=== PATIENT | male | born 1960 | race Caucasian/White ===

== ENCOUNTER → 2016-10-10 | Outpatient (CLI) | payer OTHER ==
--- OUTSIDE RECORDS SUMMARY | 2016-10-10 17:06 | XMS REPORT | Continuity of Care Document ---
Author Author [facility] Organization [facility] Address Unknown Phone Unavailable Allergies Medications Problems Date Dx Coded Attending Type Code Diagnosis Diagnosed By 05/11/2015 Ot 424.0 05/11/2015 Ot 786.59 05/11/2015 Ot 401.9 05/11/2015 Ot 424.0 05/11/2015 Ot 786.59 05/11/2015 Ot V58.69 05/11/2015 Ot 257.2 05/11/2015 Ot 995.20 05/11/2015 Ot 424.0 05/11/2015 Ot 786.59 05/11/2015 Ot 401.9 05/11/2015 Ot 424.0 05/11/2015 Ot 786.59 05/11/2015 Ot V58.69 05/11/2015 Ot 257.2 05/11/2015 Ot 995.20 05/12/2015 Ot 424.0 05/12/2015 Ot 786.59 05/12/2015 Ot 401.9 05/12/2015 Ot 424.0 05/12/2015 Ot 786.59 05/12/2015 Ot V58.69 05/12/2015 Ot 257.2 05/12/2015 Ot 995.20 05/26/2015 ANJEL PRECIADO CONCRETE PUMP OPERATOR Ot R25.1 05/26/2015 ANJEL PRECIADO CONCRETE PUMP OPERATOR Ot R41.3 05/26/2015 ANJEL PRECIADO CONCRETE PUMP OPERATOR Ot R25.1 05/26/2015 ANJEL PRECIADO CONCRETE PUMP OPERATOR Ot R41.3 06/10/2015 ANJEL PRECIADO CONCRETE PUMP OPERATOR Ot R25.1 06/10/2015 ANJEL PRECIADO CONCRETE PUMP OPERATOR Ot R41.3 11/03/2015 Ot 424.0 11/03/2015 Ot 786.59 11/03/2015 Ot 401.9 11/03/2015 Ot 424.0 11/03/2015 Ot 786.59 11/03/2015 Ot V58.69 11/03/2015 Ot 257.2 11/03/2015 Ot 995.20 11/03/2015 OZZYANJEL Marty CONCRETE PUMP OPERATOR Ot R25.1 11/03/2015 OZZY ANJEL Marty CONCRETE PUMP OPERATOR Ot R41.3 11/03/2015 PRECIADOANJEL Marty CONCRETE PUMP OPERATOR Ot R25.1 11/03/2015 OZZYANJEL Marty CONCRETE PUMP OPERATOR Ot R41.3 11/08/2015 Ot 424.0 11/08/2015 Ot 786.59 11/08/2015 Ot 401.9 11/08/2015 Ot 424.0 11/08/2015 Ot 786.59 11/08/2015 Ot V58.69 11/08/2015 Ot 257.2 11/08/2015 Ot 995.20 11/08/2015 ANJEL PRECIADO CONCRETE PUMP OPERATOR Ot R25.1 11/08/2015 ANJEL PREICADO CONCRETE PUMP OPERATOR Ot R41.3 11/08/2015 ANJEL PRECIADO CONCRETE PUMP OPERATOR Ot R25.1 11/08/2015 ANJEL PRECIADO CONCRETE PUMP OPERATOR Ot R41.3 12/20/2015 RANDY PINA, NAMRATA Herron Ot J38.3 OTHER DISEASES OF VOCAL CORDS 12/20/2015 NAMRATA PADILLA MD Ot R49.0 DYSPHONIA Procedures Results Encounters ACCT No. Visit Date/Time Discharge Status Pt. Type Provider Facility Loc./Unit Complaint [id number] 12/20/2015 13:05:00 2015 13:30:00 DIS Outpatient NAMRATA PADILLA MD [facility] REHAB [id number] 05/24/2015 08:40:00 2014 23:59:59 CLS Outpatient ANJEL PRECIADO CONCRETE PUMP OPERATOR [facility] RAD [id number] 05/12/2015 10:45:00 2014 23:59:59 CLS Outpatient ANJEL PRECIADO CONCRETE PUMP OPERATOR [facility] RAD [id number] 10/10/2016 17:02:00 ACT Outpatient ALBINO NASSAR APRN [facility] RAD PAIN ON RIGHT SIDE [id number] 02/28/2012 18:14:00 Document Registration [id number] 05/11/2011 06:32:00 Document Registration [id number] 05/10/2011 12:28:00 Document Registration
--- NOTE | 2016-10-10 17:29 | Diagnostic Imaging Report ---
INDICATION: Fall with right-sided rib pain. DISCUSSION: Two views of the right ribs were obtained, no comparison. The visualized heart and lungs are normal. No pneumothorax or pleural fluid. Dextroscoliosis of the thoracolumbar spine is incidentally noted. There is no displaced rib fracture or other acute osseous abnormality identified. IMPRESSION: 1. Negative right ribs. Dictated by: Dictated on workstation # [id number]
== END ==
LOC: RAD 17:02
PROVIDERS: ATTEND Nurse Practitioner Family
DX: R07.81 Pleurodynia (principal)
CPT/HCPCS: 71100

== ENCOUNTER → 2017-12-05 | Outpatient (CLI) | payer OTHER ==
--- NOTE | 2017-12-05 17:29 | Diagnostic Imaging Report ---
EXAMINATION: Bilateral hands. INDICATION: Hand pain. Three views of each hand were obtained. There are no prior studies available for comparison. FINDINGS: There is no fracture, dislocation, or acute bony abnormality evident. The osseous structures are well mineralized. There is mild narrowing of the radiocarpal joints bilaterally. There are no other significant arthritic changes evident. The soft tissues are unremarkable. IMPRESSION: 1. There is no evidence for an acute bony abnormality. 2. There is mild narrowing of the radiocarpal joints. There are no significant arthritic changes of the hands noted otherwise. Dictated by: Dictated on workstation # [id number]
--- NOTE | 2017-12-05 17:34 | Diagnostic Imaging Report ---
EXAMINATION: Bilateral knees at 4:51 p.m. INDICATION: Knee pain. AP and lateral views of both knee joints were obtained. There are no prior studies available for comparison. FINDINGS: There is no fracture, dislocation, or acute bony abnormality evident. There is mild narrowing of the medial and lateral compartments of each knee joint. The patellofemoral spaces are fairly well maintained. The soft tissues are unremarkable. IMPRESSION: 1. There is no evidence for an acute bony abnormality. 2. There is only mild degenerative disease of the knee joints. Dictated by: Dictated on workstation # [id number]
--- NOTE | 2017-12-05 17:35 | Diagnostic Imaging Report ---
EXAMINATION: PA and lateral Chest at 4:45 p.m. INDICATION: Shortness of breath. There are no prior studies available for comparison. FINDINGS: The heart size is within normal limits. The lungs are clear. There is no evidence for failure, pneumonia, or for a pleural effusion. The mediastinum is not widened. The osseous structures are intact. IMPRESSION: There is no evidence for an acute cardiopulmonary abnormality. Dictated by: Dictated on workstation # [id number]
== END ==
LOC: RAD 16:00
PROVIDERS: ATTEND Internal Medicine Rheumatology
DX: M17.0 Bilateral primary osteoarthritis of knee (principal); R06.02 Shortness of breath; M25.842 Other specified joint disorders, left hand; M25.841 Other specified joint disorders, right hand
CPT/HCPCS: 71046

== ENCOUNTER 2018-01-27 14:19 | Inpatient (IN) | payer OTHER ==
[2018-01-27] VITALS (7 sets, daily range): BP systolic 129–160; BP diastolic 67–104
[~2018-01-27] VITALS: Ht 172.7 cm; Wt 80.0 kg
[2018-01-27] MEDS ORDERED: RT-ALBUTEROL/IPRATROPIUM 3 ML (DUONEB) VIAL ONE (14:22)
--- NOTE | 2018-01-27 14:37 | ED Respiratory ---
General Chief Complaint: Respiratory Problems Stated Complaint: SOB Source: patient Exam Limitations: no limitations History of Present Illness Date Seen by Provider: Jan 27, 2018 Time Seen by Provider: 14:34 Initial Comments To ER per private vehicle in respiratory distress. He states that he choked on a chili dog last night and believes he inhaled it. Speaks in short phrases, respiratory rate of 47, sats on room air 81%. Does report a history of rheumatoid arthritis but takes no medications for that. He drinks 6 beers daily. He denies any known preexisting lung diseases such as asthma, copd. Primary care provider Georgia Graves APRN. Severity: moderate Prior Episodes/Possible Cause: no prior episodes Associated Symptoms: cough, shortness of breath Allergies and Home Medications Allergies Coded Allergies: No Known Drug Allergies (Unverified , 01/27/18) Patient Home Medication List Home Medication List Reviewed: Yes Review of Systems Constitutional: see HPI EENTM: see HPI Respiratory: see HPI, cough Cardiovascular: no symptoms reported Genitourinary: no symptoms reported Musculoskeletal: no symptoms reported Skin: no symptoms reported Psychiatric/Neurological: No Symptoms Reported Hematologic/Lymphatic: No Symptoms Reported Immunological/Allergic: no symptoms reported Physical Exam Vital Signs Vital Signs - First Documented 01/27/18 01/27/18 14:19 14:30 Temp 98.0 Pulse 103 Resp 28 B/P (MAP) 112/88 (96) Pulse Ox 81 O2 Delivery Nasal Cannula O2 Flow Rate 100.00 Capillary Refill : General Appearance: WD/WN, severe distress, other (RR 47, o2 81%, skin cool clammy. BP 112/71, HR 100. ) Eyes: Bilateral Eye Normal Inspection, Bilateral Eye PERRL HEENT: PERRL/EOMI, normal ENT inspection Neck: non-tender, full range of motion Respiratory: accessory muscle use, other (diminished on left and wheezing on left. ) Cardiovascular: regular rate, rhythm, no murmur Gastrointestinal: normal bowel sounds, non tender, soft Neurologic/Psychiatric: alert, normal mood/affect, oriented x 3 Skin: cool, pallor Focused Exam Lactate Level 01/27/18 14:35: Lactic Acid Level 2.09*H Lactic Acid Level Laboratory Tests Test 01/27/18 14:35 Lactic Acid Level 2.09 MMOL/L (0.50-2.00) *H Progress/Results/Core Measures Suspected Sepsis SIRS Temperature: Pulse: Respiratory Rate: Laboratory Tests 01/27/18 14:35: White Blood Count 8.9 Blood Pressure / Mean: 01/27/18 14:35: Lactic Acid Level 2.09*H Laboratory Tests 01/27/18 14:35: Creatinine 1.50H, INR Comment 1.0, Platelet Count 185, Total Bilirubin 1.0 Results/Orders Lab Results Laboratory Tests Test 01/27/18 14:35 Range/Units White Blood Count 8.9 4.3-11.0 10^3/uL Red Blood Count 5.95 H 4.35-5.85 10^6/uL Hemoglobin 17.2 13.3-17.7 G/DL Hematocrit 49 40-54 % Mean Corpuscular Volume 82 80-99 FL Mean Corpuscular Hemoglobin 29 25-34 PG Mean Corpuscular Hemoglobin Concent 35 32-36 G/DL Red Cell Distribution Width 14.1 10.0-14.5 % Platelet Count 185 130-400 10^3/uL Mean Platelet Volume 8.8 7.4-10.4 FL Neutrophils (%) (Auto) 87 H 42-75 % Lymphocytes (%) (Auto) 6 L 12-44 % Monocytes (%) (Auto) 7 0-12 % Eosinophils (%) (Auto) 0 0-10 % Basophils (%) (Auto) 0 0-10 % Neutrophils # (Auto) 7.7 1.8-7.8 X 10^3 Lymphocytes # (Auto) 0.5 L 1.0-4.0 X 10^3 Monocytes # (Auto) 0.6 0.0-1.0 X 10^3 Eosinophils # (Auto) 0.0 0.0-0.3 10^3/uL Basophils # (Auto) 0.0 0.0-0.1 10^3/uL Neutrophils % (Manual) 67 % Lymphocytes % (Manual) 6 % Monocytes % (Manual) 18 % Band Neutrophils 9 % Dohle Bodies SLIGHT Blood Morphology Comment NORMAL Prothrombin Time 13.0 12.2-14.7 SEC INR Comment 1.0 0.8-1.4 Sodium Level 131 L 135-145 MMOL/L Potassium Level 4.4 3.6-5.0 MMOL/L Chloride Level 98 98-107 MMOL/L Carbon Dioxide Level 20 L 21-32 MMOL/L Anion Gap 13 5-14 MMOL/L Blood Urea Nitrogen 21 H 7-18 MG/DL Creatinine 1.50 H 0.60-1.30 MG/DL Estimat Glomerular Filtration Rate 48 BUN/Creatinine Ratio 14 Glucose Level 100 70-105 MG/DL Lactic Acid Level 2.09 *H 0.50-2.00 MMOL/L Calcium Level 9.5 8.5-10.1 MG/DL Total Bilirubin 1.0 0.1-1.0 MG/DL Aspartate Amino Transf (AST/SGOT) 42 H 5-34 U/L Alanine Aminotransferase (ALT/SGPT) 127 H 0-55 U/L Alkaline Phosphatase 130 40-136 U/L Troponin I < 0.30 <0.30 NG/ML Total Protein 7.6 6.4-8.2 GM/DL Albumin 4.2 3.2-4.5 GM/DL Serum Alcohol 23 H <10 MG/DL My Orders Orders - CHELSY RAHMAN [employer] Piperacillin/Tazobactam (Zosyn Vial) (01/27/18 14:45) Cbc With Automated Diff (01/27/18 14:31) Comprehensive Metabolic Panel (01/27/18 14:31) Alcohol (01/27/18 14:31) Protime With Inr (01/27/18 14:31) Lactic Acid Analyzer (01/27/18 14:31) Blood Culture (01/27/18 14:31) Albuterol/Ipra Inhalation Soln (Duoneb I (01/27/18 14:45) Svn Small Volume Nebulizer (01/27/18 14:31) Methylprednisolone Sod Succ (Solu-Medrol (01/27/18 14:45) Chest 1 View, Ap/Pa Only (01/27/18 14:31) Iv Heplock-Insert (Order) (01/27/18 14:31) Bipap (Bilevel) Set Up (01/27/18 14:31) Manual Differential (01/27/18 14:35) Ns Iv 1000 Ml (Sodium Chloride 0.9%) (01/27/18 15:15) Ns Iv 1000 Ml (Sodium Chloride 0.9%) (01/27/18 15:15) Ns Iv 1000 Ml (Sodium Chloride 0.9%) (01/27/18 15:02) Troponin I (01/27/18 15:07) Ekg Tracing (01/27/18 15:07) Continuous Ekg Monitoring (01/27/18 15:07) Medications Given in ED Current Medications Medications Dose Ordered Sig/Giselle Route Start Time Stop Time Status Last Admin Dose Admin Methylprednisolone Sodium Succinate 125 mg ONCE ONCE IVP 01/27/18 14:45 01/27/18 14:46 DC 01/27/18 15:07 125 MG Piperacillin Sod/ Tazobactam Sod 3.375 gm/Dextrose 100 ml @ 200 mls/hr ONCE ONCE IV 01/27/18 14:45 01/27/18 15:14 DC 01/27/18 15:00 200 MLS/HR Vital Signs/I&O 01/27/18 01/27/18 01/27/18 01/27/18 14:19 14:30 14:35 14:52 Temp 98.0 Pulse 103 98 Resp 28 28 B/P (MAP) 112/88 (96) Pulse Ox 81 100 O2 Delivery Nasal Cannula O2 Flow Rate 100.00 60.00 40.00 Capillary Refill : Diagnostic Imaging Diagonstic Imaging: Xray Plain Films/CT/US/NM/MRI: chest Comments NAME: SHANTAL HANNAH [facility] REC#: [id number] PT STATUS: REG ER : 1960 PHYSICIAN: CHELSY RAHMAN APRN ADMIT DATE: 01/27/18/ER Draft Date of Exam:01/27/18 CHEST 1 VIEW, AP/PA ONLY INDICATION: Shortness of breath. COMPARISON: 12/05/2017. EXAMINATION: Single view of the chest was obtained. FINDINGS: Minimal perihilar infiltrate. There is no pneumothorax or large effusion. Osseous structures are age-appropriate. IMPRESSION: Minimal perihilar infiltrate. Followup recommended. Dictated on workstation # [id number] Dict: 01/27/18 1452 Trans: 01/27/[address] [facility] [id number] Interpreted by: DAVID FERGUSON Electronically signed by: Departure Communication (Admissions) Time/Spoke to Admitting Phy: 15:39 Dr Smith called back and will see patient in ICU. Dr Tenorio agrees to admit. 1508- he arrives to ER with respiratory distress significantly. IV was started 2 but with difficulty, skin is pale, veins peripherally are very difficult to find. Blood pressure 112 systolic, heart rate 100. Nonrebreather applied and he was placed on BiPAP. Wheezing on the left side. I did attempt to call Dr. Smith from pulmonology for a consult and possible bronchoscopy but no answer as of yet. Impression Primary Impression: Aspiration pneumonia Additional Impression: Respiratory distress Disposition: ADMITTED INPATIENT Condition: Critical Admissions Decision to Admit Reason: Admit from ER (General) Decision to Admit/Date: Jan 27, 2018 Time/Decision to Admit Time: 14:37 Departure-Patient Inst. Referrals: VIDAL GRAVES DO (PCP) Primary Care Physician GEORGIA GRAVES DNP (Family) Primary Care Physician CHELSY RAHMAN APRN Jan 27, 2018 14:37
[2018-01-27] MEDS ORDERED: methylPREDNISolone 125 MG (Solu-MEDROL) VIAL IVP ONE (14:45)
[2018-01-27] MEDS ORDERED: RT-ALBUTEROL/IPRATROPIUM 3 ML (DUONEB) VIAL INH ONE (14:45)
[2018-01-27] MEDS ORDERED: PIPERACILLIN/TAZOBACTAM 3.375 GM in D5W 100 ML IVPB 100 ML IV ONE (14:45)
[2018-01-27] MEDS ORDERED: ZOLP5TAB7 (14:46)
[2018-01-27] MEDS ORDERED: CNC1KV (14:46)
[2018-01-27] MEDS ORDERED: HYDR-3816 (14:46)
[2018-01-27] MEDS ORDERED: MELO15TA39 (14:46)
[2018-01-27] MEDS ORDERED: ALPR0.5T7 (14:46)
[2018-01-27 14:54] LABS: BASOPHILS % (AUTO) 0 % (0-10); EOSINOPHILS % (AUTO) 0 % (0-10); HEMATOCRIT 49 % (40-54); HEMOGLOBIN 17.2 G/DL (13.3-17.7); LYMPHOCYTES # (AUTO) 0.5 X 10^3 (1.0-4.0); LYMPHOCYTES % (AUTO) 6 % (12-44); MEAN CORPUSCULAR HEMOGLOBIN 29 PG (25-34); MEAN CORPUSCULAR HGB CONC 35 G/DL (32-36); MEAN CORPUSCULAR VOLUME 82 FL (80-99); MEAN PLATELET VOLUME 8.8 FL (7.4-10.4); MONOCYTES # (AUTO) 0.6 X 10^3 (0.0-1.0); MONOCYTES % (AUTO) 7 % (0-12); NEUTROPHILS # (AUTO) 7.7 X 10^3 (1.8-7.8); NEUTROPHILS % (AUTO) 87 % (42-75); PLATELET COUNT 185 10^3/uL (130-400); RED BLOOD COUNT 5.95 10^6/uL (4.35-5.85); RED CELL DISTRIBUTION WIDTH 14.1 % (10.0-14.5); WHITE BLOOD COUNT 8.9 10^3/uL (4.3-11.0)
[2018-01-27] MEDS ORDERED: NS IV 1000 ML 1,000 ML ONE (15:02)
--- NOTE | 2018-01-27 15:04 | Diagnostic Imaging Report ---
INDICATION: Shortness of breath. COMPARISON: 12/05/2017. EXAMINATION: Single view of the chest was obtained. FINDINGS: Minimal perihilar infiltrate. There is no pneumothorax or large effusion. Osseous structures are age-appropriate. IMPRESSION: Minimal perihilar infiltrate. Followup recommended. Dictated by: Dictated on workstation # [id number]
[2018-01-27 15:14] LABS: BAND NEUTROPHILS 9 %; LYMPHOCYTES % (MANUAL) 6 %; MONOCYTES % (MANUAL) 18 %; NEUTROPHILS % (MANUAL) 67 %; RBC MORPH NORMAL
[2018-01-27 15:15] LABS: ALBUMIN 4.2 GM/DL (3.2-4.5); CALCIUM 9.5 MG/DL (8.5-10.1); CREATININE SERUM 1.5 MG/DL (0.60-1.30); POTASSIUM 4.4 MMOL/L (3.6-5.0); TOTAL PROTEIN 7.6 GM/DL (6.4-8.2)
[2018-01-27] MEDS ORDERED: NS IV 1000 ML 1,000 ML IV SCH ×3 (15:15→18:15)
[2018-01-27] MEDS ORDERED: LACTATED RINGERS 1,000 ML IV ONE (17:45)
--- NOTE | 2018-01-27 17:57 | Pulmonary Consultation ---
History of Present Illness History of Present Illness Date of Consultation 01/27/18 17:51 Time Seen by Provider: 07:22 Date of Admission History of Present Illness 57yo without known lung disease presented to ED after choking on a chili dog last nights. He states it feels like he aspirated. When he presented to the ED he was in respiratory distress with RR of 47 and Sp02 81% on RA. He drinks 6 beers per day. PT was admitted to ICU for close observation. He has never had previous episodes like this in the past. I am consulted for pulmonary managed. Allergies and Home Medications Allergies Coded Allergies: No Known Drug Allergies (Unverified , 01/27/18) Home Medications Alprazolam 0.5 Mg Tablet, 0.5 MG PO DAILY, (Reported) Amoxicillin/Potassium Clav 1 Each Tablet, 1 EACH PO BID Prescribed by: LYNETTE CAMPOS on 01/30/18 1437 Atorvastatin Calcium 10 Mg Tablet, 10 MG PO HS, (Reported) Cholecalciferol (Vitamin D3) 1,000 Unit Tablet, 1,000 UNIT PO DAILY, (Reported) Colestipol HCl 1 Gm Tablet, 1 GM PO DAILY, (Reported) Cyanocobalamin 1,000 Mcg/Ml Inj, 1,000 MCG IM Fridays, (Reported) Folic Acid 1 Mg Tablet, 1 MG PO DAILY, (Reported) Hydrocodone/Acetaminophen 1 Each Tablet, 1 EA PO Q8H PRN for PAIN-MODERATE, ( Reported) L.acidoph & Paracasei,B.lactis 1 Each Capsule, 1 EACH PO DAILY, (Reported) Meloxicam 15 Mg Tablet, 15 MG PO BID PRN PRN for PAIN-MILD, (Reported) Propranolol HCl 60 Mg Cap.sa.24h, 60 MG PO DAILY, (Reported) Topiramate 25 Mg Tablet, 25 MG PO DAILY, (Reported) Verapamil HCl 80 Mg Tablet, 80 MG PO TID, (Reported) Zolpidem Tartrate 5 Mg Tablet, 5 MG PO HS, (Reported) Past Sosdrkj-Imscsp-Yhuato Hx Patient Social History Alcohol Use: Regular Use Number of Drinks Today: 6 Alcohol Beverage of Choice: Beer Recreational Drug Use: No Smoking Status: Never a Smoker Recent Foreign Travel: No Contact w/Someone Who Travel: No Recent Infectious Disease Expo: No Recent Hopitalizations: No Seasonal Allergies Seasonal Allergies: No Past Medical History Respiratory: Yes Pulmonary Embolism, Sleep Apnea Currently Using CPAP: No (SUPPOSED TO) Cardiac: Yes Hypertension Neurological: No Genitourinary: No Gastrointestinal: No Colitis, Gastroesophageal Reflux, Chronic Diarrhea Musculoskeletal: No Degenerate Disk Disease, Fibromyalgia, Rheumatoid Arthritis, Back Injury, Scoliosis, Chronic Back Pain Endocrine: No HEENT: No Cancer: No Psychosocial: No Integumentary: No Blood Disorders: No Adverse Reaction/Blood Tranf: No Review of Systems Time Seen by Provider: 13:26 Constitutional: No: Fever, Weakness Respiratory: Cough, Dry, Shortness of breath, SOB with excertion Cardiovascular: No: Chest Pain, Orthopnea, Paroxysmal Noc. Dyspnea Gastrointestinal: Nausea, Vomiting Neurological: Weakness Exam Exam Vital Signs Date Time Temp Pulse Resp B/P (MAP) Pulse Ox O2 Delivery O2 Flow Rate FiO2 01/27/18 17:40 Nasal Cannula 3.00 01/27/18 17:04 92 01/27/18 16:45 98.9 89 21 136/90 94 Nasal Cannula 3.00 01/27/18 16:41 Nasal Cannula 2.00 92 01/27/18 14:52 40.00 01/27/18 14:35 60.00 01/27/18 14:30 98 28 100 100.00 01/27/18 14:19 98.0 103 28 112/88 (96) 81 Nasal Cannula General Appearance: Anxious, Moderate Distress HEENT: PERRL/EOMI, Normal ENT Inspection, Pharynx Normal Respiratory: Chest Non Tender, Decreased Breath Sounds Cardiovascular: Regular Rate, Rhythm, No Edema Capillary Refill: Less Than 3 Seconds Gastrointestinal: normal bowel sounds, non tender, soft Neurologic/Psychiatric: Alert, Oriented x3 Skin: Warm/Dry Results Lab Laboratory Tests 01/27/18 14:35 Assessment/Plan Assessment/Plan Acute respiratory distress secondary to aspiration while eating a hotdog -Check CT scan -Plan for bronchoscopy in AM -Pt has improved significantly since admission however he still has increased WOB -CXR reviewed -CHeck ABG Hypoxia -SVNS, Solumedrol -oxygen Dehydration -Give liter LR bolus then run d5LR at 150 ETOH dependance -pt drinks 6 beers per day -monitor for withdraw ARF secondary to dehydration -aggressive IVF 255 RAFAEL STEVENS DO Jan 27, 2018 17:57
[2018-01-27] MEDS ORDERED: IOHEXOL 350 MG/ML 150 ML (OMNIPAQUE 350) VIAL IV ONE (18:00)
[2018-01-27] MEDS ORDERED: NS 100 ML (IVPB) BAG IV ONE (18:00)
[2018-01-27] MEDS ORDERED: RT-ALBUTEROL/IPRATROPIUM 3 ML (DUONEB) VIAL INH SCH (18:00)
[2018-01-27] MEDS: D5 LR IV SOLUTION 1,000 ML IV SCH (18:40)
[2018-01-27] MEDS: morphine INJ 4 MG/ML 1 ML (VIAL/SYRINGE) IVP PRN (18:54)
[2018-01-27 18:58] LABS: AMPHETAMINE SCREEN, URINE NEGATIVE (NEGATIVE); BARBITURATE SCREEN URINE NEGATIVE (NEGATIVE); BENZODIAZEPINES SCREEN URINE NEGATIVE (NEGATIVE); CANNABINOID SCREEN, URINE NEGATIVE (NEGATIVE); COCAINE SCREEN URINE NEGATIVE (NEGATIVE); METHADONE STAT NEGATIVE (NEGATIVE); METHAMPHETAMINE SCREEN URINE S NEGATIVE (NEGATIVE); OPIATE SCREEN URINE POSITIVE (NEGATIVE); OXYCODONE STAT NEGATIVE (NEGATIVE); PROPOXYPHENE STAT NEGATIVE (NEGATIVE); TRICYCLIC ANTIDEPRESSANTS SCRE NEGATIVE (NEGATIVE)
[2018-01-27 19:31] LABS: BILIRUBIN,URINE NEGATIVE (NEGATIVE); CLARITY,URINE CLEAR; COLOR,URINE YELLOW; GLUCOSE, URINE (UA) NEGATIVE (NEGATIVE); KETONES,URINE NEGATIVE (NEGATIVE); LEUKOCYTE ESTERASE ,URINE NEGATIVE (NEGATIVE); NITRITE,URINE NEGATIVE (NEGATIVE); PH,URINE 5 (5-9); PROTEIN,URINE NEGATIVE (NEGATIVE); UROBILINOGEN,URINE NORMAL (NORMAL)
[2018-01-27] MEDS ORDERED: meTOprolol TARTRATE 25 MG (LOPRESSOR) TABLET ONE (19:39)
[2018-01-27 19:41] LABS: BACTERIA,URINE NEGATIVE /HPF
[2018-01-27] MEDS: RT-ALBUTEROL/IPRATROPIUM 3 ML (DUONEB) VIAL INH SCH (19:43)
[2018-01-27] MEDS ORDERED: meTOprolol TARTRATE 25 MG (LOPRESSOR) TABLET PO STA (19:47)
[2018-01-27] MEDS ORDERED: hydrALAZINE (APESOLINE) 20 MG/ML VIAL IV PRN (20:00)
--- NOTE | 2018-01-27 20:51 | Diagnostic Imaging Report ---
PROCEDURE: CT angiography of the chest with contrast. TECHNIQUE: Multiple contiguous axial images were obtained through the chest after uneventful bolus administration of intravenous contrast. Reconstructed CTA MIP acquisitions were also performed. INDICATION: Short of breath, question aspiration, rule out pulmonary embolus. EXAMINATION: CT angiogram of the chest dated 01/27/2018 FINDINGS: The thoracic aorta is unremarkable. The proximal segmental and central pulmonary arteries are patent with no embolus appreciated. Distal vessels not well opacified. No significant pericardial or pleural effusion seen. No adenopathy appreciated in the mediastinum at visualized axilla. A few nonspecific minimally prominent lymph nodes noted in the right hilum. There are patchy airspace opacities in the left lower lobe and infrahilar region. Groundglass opacity seen in the apices right greater than left. Some of this especially in the right upper lobe has a tree-in-bud type appearance which would suggest possible atypical pneumonia or viral process with a tiny nodule in the region noted and followup recommended to assure complete resolution. The midlung is poorly evaluated due to respiratory motion. Airspace opacity in the medial aspect of the right middle lobe also noted and similar findings noted in the lingula. The visualized upper abdominal structures demonstrate marked fatty infiltration throughout the liver. Evidence of previous cholecystectomy. There is no acute osseous abnormality. IMPRESSION: 1. Scattered airspace opacities bilaterally as described which are likely due to areas of atelectasis and infiltrates. An atypical type of pneumonia possible in the right middle lobe as described above. An associated subcentimeter nodularity noted. Followup CT chest once patient treated would be recommended to assure complete resolution and exclude any underlying nodules or masses. Other incidental findings as described above with no central or proximal segmental pulmonary emboli appreciated. Dictated by: Dictated on workstation # [id number]
[2018-01-27] MEDS: PIPERACILLIN/TAZO 3.375 GM/D5W 100 ML IV SCH ×2 (21:32)
[2018-01-27] MEDS: ZOLPIDEM 5 MG (AMBIEN) TAB PO PRN (21:32)
[2018-01-27] MEDS: VERAPAMIL PM 100 MG (VERELAN PM) CAP.SR.24H PO SCH (21:39)
[2018-01-27] MEDS: methylPREDNISolone 40 MG/ML (Solu-MEDROL) VIAL IV SCH (23:46)
[2018-01-28] VITALS (25 sets, daily range): BP systolic 96–167; BP diastolic 62–104
[2018-01-28] MEDS: D5 LR IV SOLUTION 1,000 ML IV SCH ×5 (01:30→21:03)
[2018-01-28] MEDS: RT-ALBUTEROL/IPRATROPIUM 3 ML (DUONEB) VIAL INH SCH ×4 (02:03→21:04)
[2018-01-28 04:23] LABS: BASOPHILS % (AUTO) 0 % (0-10); EOSINOPHILS # (AUTO) 0.1 10^3/uL (0.0-0.3); EOSINOPHILS % (AUTO) 1 % (0-10); HEMATOCRIT 40 % (40-54); HEMOGLOBIN 13.9 G/DL (13.3-17.7); LYMPHOCYTES # (AUTO) 0.5 X 10^3 (1.0-4.0); LYMPHOCYTES % (AUTO) 4 % (12-44); MEAN CORPUSCULAR HEMOGLOBIN 30 PG (25-34); MEAN CORPUSCULAR HGB CONC 35 G/DL (32-36); MEAN CORPUSCULAR VOLUME 84 FL (80-99); MEAN PLATELET VOLUME 9.7 FL (7.4-10.4); MONOCYTES # (AUTO) 0.4 X 10^3 (0.0-1.0); MONOCYTES % (AUTO) 4 % (0-12); NEUTROPHILS # (AUTO) 10.9 X 10^3 (1.8-7.8); NEUTROPHILS % (AUTO) 92 % (42-75); PLATELET COUNT 133 10^3/uL (130-400); RED BLOOD COUNT 4.69 10^6/uL (4.35-5.85); RED CELL DISTRIBUTION WIDTH 13.9 % (10.0-14.5); WHITE BLOOD COUNT 11.8 10^3/uL (4.3-11.0)
[2018-01-28 04:43] LABS: BUN/CREATININE RATIO 12; CALCIUM 8.9 MG/DL (8.5-10.1); CARBON DIOXIDE 19 MMOL/L (21-32); CHLORIDE 106 MMOL/L (98-107); GFR ESTIMATED > 60; GLUCOSE 221 MG/DL (70-105); MAGNESIUM 1.7 MG/DL (1.8-2.4); PHOSPHORUS 1.7 MG/DL (2.3-4.7); POTASSIUM 4.5 MMOL/L (3.6-5.0); SODIUM 136 MMOL/L (135-145)
[2018-01-28] MEDS: KCL 20 MEQ TAB (K-DUR) PO SCH (04:57)
[2018-01-28] MEDS: POTASSIUM CL 10MEQ/50ML IVPB 50 ML IV SCH (04:57)
[2018-01-28] MEDS: MAGNESIUM 1 GM/100 ML IVPB 100 ML IV SCH ×2 (04:57→05:03)
[2018-01-28] MEDS ORDERED: MAGNESIUM 1 GM/100 ML IVPB 200 ML IV ONE (04:58)
[2018-01-28] MEDS ORDERED: MIDAZOLAM 5 MG/5 ML (VERSED) VIAL ONE (06:01)
[2018-01-28] MEDS ORDERED: fentaNYL INJECTION 100 MCG/2 ML AMP ONE (06:02)
[2018-01-28] MEDS: methylPREDNISolone 40 MG/ML (Solu-MEDROL) VIAL IV SCH ×4 (06:10→23:53)
[2018-01-28] MEDS: PIPERACILLIN/TAZO 3.375 GM/D5W 100 ML IV SCH ×6 (06:10→21:04)
[2018-01-28] MEDS ORDERED: RT-ALBUTEROL/IPRATROPIUM 3 ML (DUONEB) VIAL INH PRN (07:00)
--- NOTE | 2018-01-28 08:43 | Diagnostic Imaging Report ---
INDICATION: Dyspnea. TIME OF EXAM: 3:45 AM Correlation is made with prior study from one day earlier. FINDINGS: Heart size is stable. There may be minimal infiltrate or atelectasis in the right base medially. Otherwise the lungs are clear. No effusion or pneumothorax is seen. IMPRESSION: Minimal right basilar infiltrate or atelectasis. Dictated by: Dictated on workstation # [id number]
[2018-01-28] MEDS ORDERED: LIDOCAINE PF 1% 2 ML AMP INJ ONE (09:43)
[2018-01-28] MEDS ORDERED: LIDOCAINE 4% INJ (XYLOCAINE) 5ML AMP INJ ONE (09:43)
[2018-01-28] MEDS ORDERED: LIDOCAINE JELLY 2% (XYLOCAINE) 30 ML TUBE TOP ONE (09:43)
[2018-01-28] MEDS ORDERED: CHOL100045 PO (10:18)
[2018-01-28] MEDS ORDERED: CNC1KV IM (10:18)
[2018-01-28] MEDS ORDERED: ZOLP5TAB PO (10:18)
[2018-01-28] MEDS ORDERED: ATOR10TA66 PO (10:18)
[2018-01-28] MEDS ORDERED: COLE1TAB PO (10:18)
[2018-01-28] MEDS ORDERED: L.AC1CAP6 PO (10:18)
[2018-01-28] MEDS ORDERED: TPR25T PO (10:18)
[2018-01-28] MEDS ORDERED: PROP60CA PO (10:18)
[2018-01-28] MEDS ORDERED: VERA80TA2 PO (10:18)
[2018-01-28] MEDS ORDERED: FOLI1TAB24 PO (10:18)
[2018-01-28] MEDS ORDERED: MELO15TA39 PO (10:18)
[2018-01-28] MEDS ORDERED: HYDR-756 PO (10:18)
[2018-01-28] MEDS ORDERED: ALPR0.5T PO (10:18)
--- NOTE | 2018-01-28 14:31 | History & Physical-Hospitalist ---
History of Present Illness HPI/Chief Complaint The patient is a 57-year-old white male who presented to the emergency room yesterday with complaints of shortness of breath. He walked from his family car at the door to the window at admitting. He appeared so ghastly that they immediately sent him to the back. He was able to walk to the room however he exhibited blue lips and a terrible color. His admitting respiratory rate was 47 O2 saturation on room air was 81 percent. He stated that this difficulty had begun after he choked on it chili dog the night before. Symptoms steadily increased until his family insisted he come to the emergency room. He states that he normally walks for 1 hour daily. During this time he would cover about 3 miles. He also observes that he feels hoarse today. Source: patient Exam Limitations: no limitations Date Seen 01/28/18 Time Seen by Provider: 14:27 Attending Physician Janelle Tenorio DO PCP Babatunde Graves DO Referring Physician Date of Admission Jan 27, 2018 at 15:57 Home Medications & Allergies Home Medications Reviewed patient Home Medication Reconciliation performed by pharmacy medication reconciliations vascular ultrasound technician and/or nursing. Patients Allergies have been reviewed. Allergies Allergies Coded Allergies No Known Drug Allergies (Unverified01/27/18) Past [id number]-Swmhfm Hx Past Med/Social Hx: Reviewed Nursing Past Med/Soc Hx Patient Social History Alcohol Use: Regular Use Number of Drinks Today: 6 Alcohol Beverage of Choice: Beer Recreational Drug Use: No Smoking Status: Never a Smoker Physical Abuse Screen: No Sexual Abuse: No Recent Foreign Travel: No Contact w/other who traveled: No Recent Hopitalizations: No Recent Infectious Disease Expo: No Seasonal Allergies Seasonal Allergies: No Past Medical History Currently Using CPAP: No (SUPPOSED TO) Cardiac: Hypertension Gastrointestinal: Colitis, Gastroesophageal Reflux, Chronic Diarrhea Musculoskeletal: Degenerate Disk Disease, Fibromyalgia, Rheumatoid Arthritis, Back Injury, Scoliosis, Chronic Back Pain History of Blood Disorders: No Adverse Reaction to Blood Cheung: No Review of Systems Constitutional: see HPI EENTM: no symptoms reported Respiratory: see HPI, dyspnea on exertion, short of breath Cardiovascular: no symptoms reported Gastrointestinal: no symptoms reported Genitourinary: no symptoms reported Musculoskeletal: no symptoms reported Skin: no symptoms reported Psychiatric/Neurological: No Symptoms Reported Physical Exam Physical Exam Vital Signs Vital Signs - First Documented 01/27/18 01/27/1801/27/18 14:19 14:30 16:41 Temp 98.0 Pulse 103 Resp 28 B/P (MAP) 112/88 (96) Pulse Ox 81 O2 Delivery Nasal Cannula O2 Flow Rate 100.00 FiO2 92 Capillary Refill : Less Than 3 Seconds General Appearance: Mild Distress Eyes: Bilateral Eye Normal Inspection HEENT: Normal ENT Inspection Neck: Full Range of Motion, Normal Inspection, Non Tender, Supple, Carotid Bruit Respiratory: Rhonci, Stridor Cardiovascular: Tachycardia Gastrointestinal: Normal Bowel Sounds, No Organomegaly, No Pulsatile Mass, Non Tender, Soft Back: Normal Inspection Extremity: Normal Capillary Refill, Normal Inspection, Normal Range of Motion, Non Tender, No Calf Tenderness, No Pedal Edema Neurologic/Psychiatric: Alert, Oriented x3, No Motor/Sensory Deficits, Normal Mood/Affect, Other (spoke in short bursts) Skin: Normal Color, Warm/Dry Lymphatic: No Adenopathy Results Results/Procedures Labs Laboratory Tests 01/29/18 03:45 01/30/18 03:20 Patient resulted labs reviewed. Assessment/Plan Admission Diagnosis Hypoxia with impending respiratory failure. 2.possible aspiration of foreign body. Admission Status: Inpatient Order (span 2 midnights) Reason for Inpatient Admission: Respiratory failure Assessment and Plan O2 supplementation. 2.CPAP. 3.empiric antibiotic coverage. 4.consult Dr. Smith/pulmonology Clinical Quality Measures DVT/VTE Risk/Contraindication: Risk Factor Score Per Nursin RFS Level Per Nursing on Admit: 4+=Very High KEVEN GUPTA MD Jan 28, 2018 14:31
[2018-01-28] MEDS: ZOLPIDEM 5 MG (AMBIEN) TAB PO PRN (20:37)
[2018-01-28] MEDS: VERAPAMIL PM 100 MG (VERELAN PM) CAP.SR.24H PO SCH (20:37)
[2018-01-28] MEDS: morphine INJ 4 MG/ML 1 ML (VIAL/SYRINGE) IVP PRN (23:53)
[2018-01-29] VITALS (17 sets, daily range): BP systolic 119–185; BP diastolic 68–98
[2018-01-29] MEDS: RT-ALBUTEROL/IPRATROPIUM 3 ML (DUONEB) VIAL INH SCH ×4 (02:39→21:49)
[2018-01-29] MEDS: LORazepam INJ 2 MG/ML (ATIVAN) VIAL IVP PRN ×4 (02:49→16:16)
[2018-01-29] MEDS: D5 LR IV SOLUTION 1,000 ML IV SCH (03:00)
[2018-01-29 04:09] LABS: BASOPHILS % (AUTO) 0 % (0-10); EOSINOPHILS % (AUTO) 0 % (0-10); HEMATOCRIT 36 % (40-54); HEMOGLOBIN 12.4 G/DL (13.3-17.7); LYMPHOCYTES # (AUTO) 0.4 X 10^3 (1.0-4.0); LYMPHOCYTES % (AUTO) 4 % (12-44); MEAN CORPUSCULAR HEMOGLOBIN 29 PG (25-34); MEAN CORPUSCULAR HGB CONC 34 G/DL (32-36); MEAN CORPUSCULAR VOLUME 85 FL (80-99); MEAN PLATELET VOLUME 9.4 FL (7.4-10.4); MONOCYTES # (AUTO) 0.5 X 10^3 (0.0-1.0); MONOCYTES % (AUTO) 5 % (0-12); NEUTROPHILS # (AUTO) 9.1 X 10^3 (1.8-7.8); NEUTROPHILS % (AUTO) 92 % (42-75); PLATELET COUNT 131 10^3/uL (130-400); RED BLOOD COUNT 4.28 10^6/uL (4.35-5.85); RED CELL DISTRIBUTION WIDTH 14.2 % (10.0-14.5); WHITE BLOOD COUNT 9.9 10^3/uL (4.3-11.0)
[2018-01-29 04:32] LABS: BUN/CREATININE RATIO 11; CARBON DIOXIDE 21 MMOL/L (21-32); CHLORIDE 108 MMOL/L (98-107); CREATININE SERUM 1.01 MG/DL (0.60-1.30); GFR ESTIMATED > 60; GLUCOSE 196 MG/DL (70-105); MAGNESIUM 2.3 MG/DL (1.8-2.4); PHOSPHORUS 1.6 MG/DL (2.3-4.7); POTASSIUM 3.7 MMOL/L (3.6-5.0); SODIUM 139 MMOL/L (135-145)
[2018-01-29] MEDS: methylPREDNISolone 40 MG/ML (Solu-MEDROL) VIAL IV SCH ×4 (06:22→23:18)
[2018-01-29] MEDS: PIPERACILLIN/TAZO 3.375 GM/D5W 100 ML IV SCH ×2 (06:22)
[2018-01-29] MEDS: POTASSIUM CL 10MEQ/50ML IVPB 50 ML IV SCH (06:31)
--- NOTE | 2018-01-29 06:31 | Pulmonary Procedures ---
Pulmonary Procedures Date of Procedure Date of Service: Jan 28, 2018 (late note procedure done 01/28 today 01/29) Bronch Bronchoscopy with bronchoalveolar lavage (BAL), transbronchial washes and, brushes. Preop DX aspiration Postop DX: No foreign body's found Complications: none After informed consent obtained and formal time out pt was sedated using Fentanyl and Versed. Bronchoscope was advanced through the nare and vocal cords. 1% lidocaine was used to anesthetize vocal cords, epiglottis, agatha, and left/right main stem bronchus. An anatomical tour was undertaken down to the segmental bronchi bilaterally. No endobronchial lesions or foreign body's noted. From the RML a bronchoalveolar lavage (BAL), transbronchial washes and, brushes were obtained. Pt tolerated procedure well. No complications noted. Stat CXR is pending. RAFAEL STEVENS DO Jan 29, 2018 06:31
[2018-01-29] MEDS: MAGNESIUM 1 GM/100 ML IVPB 100 ML IV SCH (06:33)
[2018-01-29] MEDS: KCL 20 MEQ TAB (K-DUR) PO SCH (06:33)
--- NOTE | 2018-01-29 06:37 | Pulmonary Progress Note ---
Subjective Time Seen by Provider: 06:37 Subjective/Events-last exam Pt feels improved post bronchoscopy Focused Exam Lactate Level 01/27/18 14:35: Lactic Acid Level 2.09*H 01/27/18 16:40: Lactic Acid Level 2.44*H 01/27/18 19:10: Lactic Acid Level 1.77 Exam Exam Vital Signs Date Time Temp Pulse Resp B/P (MAP) Pulse Ox O2 Delivery O2 Flow Rate FiO2 01/29/18 04:00 55 21 148/85 (106) 95 Room Air 01/29/18 04:00 96 Room Air 01/29/18 03:00 72 20 158/94 (115) 96 Room Air 01/29/18 02:39 99 Room Air 01/29/18 02:00 54 23 135/70 (91) 95 Room Air 01/29/18 01:00 62 01/29/18 01:00 62 23 119/68 (85) 96 Room Air 01/29/18 00:00 101 18 164/93 (116) 93 Room Air 01/29/18 00:00 96 Room Air 01/28/18 23:59 98.8 01/28/18 23:00 63 19 130/68 (88) 94 Room Air 01/28/18 22:00 72 24 167/104 (125) 96 Room Air 01/28/18 21:04 97 Room Air 01/28/18 21:00 61 26 160/95 (116) 96 Room Air 01/28/18 20:00 96 Room Air 01/28/18 20:00 87 22 163/88 (113) 96 Room Air 01/28/18 20:00 99.0 01/28/18 19:00 92 01/28/18 19:00 92 25 166/96 (119) 95 Room Air 01/28/18 18:00 95 38 149/84 (105) 95 Room Air 01/28/18 17:00 76 30 136/74 (94) 97 Room Air 01/28/18 16:00 98.8 01/28/18 16:00 87 24 138/75 (96) 95 Room Air 01/28/18 16:00 96 Room Air 01/28/18 15:00 97 11 145/80 (101) 94 Room Air 01/28/18 15:00 95 Room Air 01/28/18 14:00 93 35 156/90 (112) 95 Nasal Cannula 3.00 01/28/18 13:00 82 14 119/86 (97) 95 Nasal Cannula 3.00 01/28/18 13:00 89 01/28/18 12:00 95 Nasal Cannula 3.00 01/28/18 12:00 90 22 139/74 (95) 97 Nasal Cannula 3.00 01/28/18 12:00 98.6 01/28/18 11:00 75 21 112/79 (90) 95 Nasal Cannula 3.00 01/28/18 10:00 81 27 96/62 (73) 93 Nasal Cannula 3.00 01/28/18 09:38 95 Nasal Cannula 6.00 01/28/18 09:00 78 31 142/94 (110) 93 Nasal Cannula 3.00 01/28/18 08:00 77 16 139/97 (111) 93 Nasal Cannula 3.00 01/28/18 08:00 95 Nasal Cannula 3.00 01/28/18 08:00 98.4 01/28/18 07:00 85 21 142/95 (111) 91 Nasal Cannula 3.00 01/28/18 07:00 85 01/28/18 06:45 95 I & O 01/29/18 07:00 Intake Total 3010 ml Output Total 0 ml Balance 3010 ml General Appearance: No Apparent Distress, Anxious HEENT: Normal ENT Inspection Neck: Full Range of Motion, Normal Inspection, Non Tender, Supple, Carotid Bruit Respiratory: Rhonci, Stridor Cardiovascular: Tachycardia Capillary Refill: Less Than 3 Seconds Gastrointestinal: normal bowel sounds, non tender, soft Extremity: Normal Capillary Refill, Normal Inspection, Normal Range of Motion, Non Tender, No Calf Tenderness, No Pedal Edema Neurologic/Psychiatric: Alert, Oriented x3, No Motor/Sensory Deficits, Normal Mood/Affect, Other (spoke in short bursts) Skin: Normal Color, Warm/Dry Lymphatic: No Adenopathy Results Lab Laboratory Tests 01/27/18 14:35 01/28/18 03:25 01/29/18 03:45 Assessment/Plan Assessment/Plan Acute respiratory distress secondary to aspiration while eating a hotdog -CT scan - reviewed -S/p bronchoscopy which was negative -CXR reviewed Lung nodule -Repeat CT scan in 8wks after discharge. -Order placed for RN to make f/u appt with me Hypoxia -resolved Atelectasis -Increase activity ETOH dependance -pt drinks 6 beers per day -monitor for withdraw ARF- resolved 233 RAFAEL STEVENS DO Jan 29, 2018 06:37
[2018-01-29] MEDS ORDERED: SODIUM PHOSPHATE INJ 30 MM in NS (IVPB) 250 ML IV NR (06:45)
--- NOTE | 2018-01-29 07:50 | Diagnostic Imaging Report ---
Indication: Dyspnea. Comparison: 01/28/2018 Findings: Single frontal radiographic view of chest was obtained and demonstrates interval development of mild pulmonary vascular congestion. Heart size however appears to be within normal limits. Lungs are clear. There is no focal consolidation, large effusion, nor pneumothorax. Bony structures show no gross acute abnormalities. Impression: 1. Probable mild pulmonary vascular congestion. Continued followup is recommended. Dictated by: Dictated on workstation # [id number]
[2018-01-29] MEDS: AUGMENTIN 875 MG TAB (AMOXICILLIN/CLAVULANATE) PO SCH ×2 (08:34→17:52)
--- NOTE | 2018-01-29 12:24 | Progress Note-Hospitalist ---
Progress Note Progress Notes/Assess & Plan Date Seen 01/29/18 Time Seen by Provider: 12:22 Assessment & Plan The patient continues to improve. His SaO2's are quite satisfactory. He had told us in the emergency room that he drank on the average 6 beers per day. He is showing evidence today of withdrawal with regard to tremulousness and sweating. He would wish to go home today which I believe to be premature and told him so. He will be transferred to the floor. He will receive benzos to manage his tremulousness. Physical exam: Color is good and he is alert. Lungs are clear to auscultation. CV is regular. Abdomen is soft without tenderness to palpation. Extremities show no pedal edema. Impression: Acute hypoxia, greatly improved. 2.apparent alcohol withdrawal symptoms. Plan: Transfer to the floor and increase activities. 2.benzodiazepines as needed to manage withdrawal symptoms. Focused Exam Lactate Level 01/27/18 14:35: Lactic Acid Level 2.09*H 01/27/18 16:40: Lactic Acid Level 2.44*H 01/27/18 19:10: Lactic Acid Level 1.77 KEVEN GUPTA MD Jan 29, 2018 12:24
[2018-01-29] MEDS ORDERED: MELOXICAM 7.5 MG (MOBIC) TABLET PO PRN (19:34)
[2018-01-29] MEDS ORDERED: LORazepam 1 MG (ATIVAN) TAB PO PRN (19:45)
[2018-01-29] MEDS ORDERED: ACETAMINOPHEN 325 MG TABLET PO PRN (19:45)
[2018-01-29] MEDS ORDERED: ZOLPIDEM 5 MG (AMBIEN) TAB PO PRN (19:45)
[2018-01-29] MEDS: VERAPAMIL 80 MG (ISOPTIN) TAB PO SCH (20:44)
[2018-01-29] MEDS: HYDROcodone/APAP 7.5 MG/325 MG (LORTAB, LORCET PLUS) TABLET PO PRN (20:45)
[2018-01-29] MEDS ORDERED: ATORVASTATIN 10 MG (LIPITOR) TABLET PO SCH (21:00)
[2018-01-29] MEDS: ZOLPIDEM 5 MG (AMBIEN) TAB PO PRN (22:09)
[2018-01-30 03:32] VITALS: BP 186/96
[2018-01-30 03:33] LABS: BASOPHILS % (AUTO) 0 % (0-10); EOSINOPHILS % (AUTO) 0 % (0-10); HEMATOCRIT 36 % (40-54); HEMOGLOBIN 12.5 G/DL (13.3-17.7); LYMPHOCYTES # (AUTO) 0.4 X 10^3 (1.0-4.0); LYMPHOCYTES % (AUTO) 4 % (12-44); MEAN CORPUSCULAR HEMOGLOBIN 30 PG (25-34); MEAN CORPUSCULAR HGB CONC 35 G/DL (32-36); MEAN CORPUSCULAR VOLUME 85 FL (80-99); MEAN PLATELET VOLUME 9.7 FL (7.4-10.4); MONOCYTES # (AUTO) 0.5 X 10^3 (0.0-1.0); MONOCYTES % (AUTO) 5 % (0-12); NEUTROPHILS % (AUTO) 91 % (42-75); PLATELET COUNT 141 10^3/uL (130-400); RED BLOOD COUNT 4.23 10^6/uL (4.35-5.85); RED CELL DISTRIBUTION WIDTH 14.1 % (10.0-14.5); WHITE BLOOD COUNT 9.9 10^3/uL (4.3-11.0)
[2018-01-30 03:53] LABS: BUN/CREATININE RATIO 15; CARBON DIOXIDE 18 MMOL/L (21-32); CHLORIDE 109 MMOL/L (98-107); CREATININE SERUM 0.93 MG/DL (0.60-1.30); GFR ESTIMATED > 60; GLUCOSE 131 MG/DL (70-105); PHOSPHORUS 3.3 MG/DL (2.3-4.7); POTASSIUM 3.6 MMOL/L (3.6-5.0); SODIUM 139 MMOL/L (135-145)
[2018-01-30] MEDS: methylPREDNISolone 40 MG/ML (Solu-MEDROL) VIAL IV SCH (05:57)
[2018-01-30] MEDS: HYDROcodone/APAP 7.5 MG/325 MG (LORTAB, LORCET PLUS) TABLET PO PRN (05:58)
[2018-01-30] MEDS: AUGMENTIN 875 MG TAB (AMOXICILLIN/CLAVULANATE) PO SCH (06:00)
--- NOTE | 2018-01-30 07:26 | Pulmonary Progress Note ---
Subjective Time Seen by Provider: 07:26 Subjective/Events-last exam PT started running a fever yesterday evening. Focused Exam Lactate Level 01/27/18 14:35: Lactic Acid Level 2.09*H 01/27/18 16:40: Lactic Acid Level 2.44*H 01/27/18 19:10: Lactic Acid Level 1.77 Exam Exam Vital Signs Date Time Temp Pulse Resp B/P (MAP) Pulse Ox O2 Delivery O2 Flow Rate FiO2 01/30/18 07:04 95 Nasal Cannula 2.00 01/30/18 05:53 98.9 01/30/18 03:32 100.8 54 19 186/96 (126) 95 Nasal Cannula 2.00 01/30/18 02:40 100.5 01/30/18 02:35 Nasal Cannula 2.00 01/30/18 01:44 100.8 01/30/18 01:44 100.8 01/30/18 01:00 53 01/30/18 00:11 101.1 01/29/18 23:59 101.1 67 22 164/84 (110) 90 Room Air 01/29/18 22:16 83 93 01/29/18 21:49 93 Room Air 01/29/18 20:45 Room Air 01/29/18 19:27 100.0 72 24 185/86 (119) 93 Room Air 01/29/18 19:00 70 01/29/18 17:51 65 01/29/18 16:00 100.3 65 24 185/88 (120) 93 Room Air 01/29/18 15:14 90 Room Air 01/29/18 12:00 56 37 174/97 (122) 96 Room Air 01/29/18 12:00 96 Room Air 01/29/18 11:00 58 22 181/98 (125) 95 Room Air 01/29/18 10:00 53 22 165/89 (114) 97 Room Air 01/29/18 09:51 96 Nasal Cannula 1.50 01/29/18 09:00 51 22 155/89 (111) 95 Room Air 01/29/18 08:00 51 25 150/71 (97) 95 Room Air 01/29/18 08:00 96 Room Air I & O 01/30/18 07:00 Intake Total 3000 ml Balance 3000 ml General Appearance: No Apparent Distress, Anxious HEENT: Normal ENT Inspection Neck: Full Range of Motion, Normal Inspection, Non Tender, Supple, Carotid Bruit Respiratory: Rhonci, Stridor Cardiovascular: Tachycardia Capillary Refill: Less Than 3 Seconds Gastrointestinal: normal bowel sounds, non tender, soft Extremity: Normal Capillary Refill, Normal Inspection, Normal Range of Motion, Non Tender, No Calf Tenderness, No Pedal Edema Neurologic/Psychiatric: Alert, Oriented x3, No Motor/Sensory Deficits, Normal Mood/Affect, Other (spoke in short bursts) Skin: Normal Color, Warm/Dry Lymphatic: No Adenopathy Results Lab Laboratory Tests 01/29/18 03:45 01/30/18 03:20 Assessment/Plan Assessment/Plan Acute respiratory distress secondary to aspiration while eating a hotdog -CT scan - reviewed -S/p bronchoscopy which was negative -CXR reviewed -S/C solumedrol Hypoxia -pt placed on oxygen 2 liters NC yesterday PNA with MSSA vs MRSA- TM 101.1 -Currently on Zosyn since 01/29 -No leukocytosis, CXR is stable. Probably MSSA with continue with current Zosyn and continue to monitor for signs of MRSA. ETOH dependance - with signs of withdrawal -pt drinks 6 beers per day -monitor for withdraw Fever secondary to infection vs withdraw Lung nodule -Repeat CT scan in 8wks after discharge. -Order placed for RN to make f/u appt with me Hypokalemia -replace Hypoxia -resolved Atelectasis -Increase activity ARF- resolved Labs and radiology reviewed 233 RAFAEL STEVENS DO Jan 30, 2018 07:26
[2018-01-30] MEDS ORDERED: KCL 10 MEQ TAB (MICRO K) PO NR (07:30)
[2018-01-30] MEDS ORDERED: RT-ALBUTEROL/IPRATROPIUM 3 ML (DUONEB) VIAL INH SCH (08:00)
[2018-01-30] MEDS: VERAPAMIL 80 MG (ISOPTIN) TAB PO SCH ×2 (08:02→12:38)
[2018-01-30 08:43] VITALS: BP 183/93
[2018-01-30] MEDS ORDERED: LACTOBACILLUS Acidoph/Bulgar (LACTINEX/FLORANEX) TAB PO SCH (09:00)
[2018-01-30] MEDS ORDERED: FOLIC ACID 1 MG TAB PO SCH (09:00)
[2018-01-30] MEDS ORDERED: ALPRAZolam 0.5 MG (XANAX) TAB PO SCH (09:00)
[2018-01-30] MEDS ORDERED: toPIRamate 25 MG (TOPAMAX) TAB PO SCH (09:00)
[2018-01-30] MEDS ORDERED: NON-FORMULARY MEDICATION 1 EA EA (Propranolol HCl (Propranolol HCl ER) 60 MG) PO SCH (09:00)
[2018-01-30] MEDS ORDERED: COLESTIPOL 1 GM (COLESTID) TAB PO SCH (09:00)
[2018-01-30] MEDS ORDERED: VITAMIN D3 1,000 UNITS (CHOLECALCIFEROL) TABLET PO SCH (09:00)
--- NOTE | 2018-01-30 12:02 | Diagnostic Imaging Report ---
INDICATION: Shortness of breath Portable chest 3:56 AM Heart size and pulmonary vascularity are normal. There is some patchy infiltrate or atelectasis at the left lung base. Right lung is clear. IMPRESSION: Patchy infiltrate left lung base. This is slightly more prominent than on the previous days comparison exam. Dictated by: Dictated on workstation # [id number]
[2018-01-30 12:30] VITALS: BP 188/118
--- NOTE | 2018-01-30 13:14 | Progress Note-Hospitalist ---
Progress Note Progress Notes/Assess & Plan Date Seen 01/30/18 Time Seen by Provider: 13:02 Assessment & Plan The patient appears stable today. He has less twitchy than he was yesterday. It is noted that he is hypertensive. He takes a long acting propranolol product that is not available to us. He is ready for discharge and will resume his medications at home. Physical exam: Color is good. Respirations are clear and without labor. CV is regular without murmur. Extremities show no pedal edema. Abdomen is nontender. Impression: Hypoxia/borderline respiratory failure. 2.hypertension. 3.tremors and diaphoresis suggesting alcohol withdrawal symptoms. Focused Exam Lactate Level 01/27/18 14:35: Lactic Acid Level 2.09*H 01/27/18 16:40: Lactic Acid Level 2.44*H 01/27/18 19:10: Lactic Acid Level 1.77 KEVEN GUPTA MD Jan 30, 2018 13:14
--- NOTE | 2018-01-30 13:18 | Discharge Instructions ---
Discharge Instructions Patient Instructions Patient Instructions: Resume medications as listed on your discharge sequence. Specifically your propranolol was not on our formulary and you should take this when he arrived home. Resume diet and activities as before. Make arrangements to see Dr. Graves within the next week. Return to [facility]: Relapse in symptoms Activity & Diet Discharge Diet: No Restrictions Activity as Tolerated: Yes KEVEN GUPTA MD Jan 30, 2018 13:18
[2018-01-30] MEDS ORDERED: AMOX-358 PO (14:37)
[2018-01-30 14:51] VITALS: BP 188/93
--- NOTE | 2018-02-20 15:49 | Discharge Summary-Hospitalist ---
Diagnosis/Chief Complaint Date of Admission Jan 27, 2018 at 15:57 Date of Discharge Jan 30, 2018 at 14:55 Discharge Date: Jan 30, 2018 Admission Diagnosis Hypoxia with impending respiratory failure. 2.possible aspiration of foreign body. Discharge Diagnosis Acute hypoxia/borderline respiratory failure. 2.atypical right middle lobe pneumonia. 3.sepsis Discharge Summary Discharge Physical Exam Allergies: Coded Allergies: No Known Drug Allergies (Unverified , 01/27/18) General Appearance: Alert, Oriented X3, Cooperative Hospital Course The patient was a 57-year-old white male who presented to the emergency room with complaints of severe shortness of breath. He apparently walked from the entrance door to the registration window and appeared just ghastly to the clerks who brought him immediately to the back he was able to walk to the room however he exhibited blue lips and a terrible Gen. color. His respiratory rate was 47 and his O2 saturation on room air was 81 percent. He gave a history about choking on a chili dog the night before and possible aspiration was considered. X-ray suggested atelectasis or early pneumonia. Subsequent x-ray was consistent with an atypical right middle lobe pneumonia and was consistent with the possible aspiration. Initial lactic acid was 2.44 and 2 hours later 1.71. He was placed on empiric antibiotics and IV support. He improved daily, his second day he reported feeling much better except for the sense of hoarseness. He was discharged in improved condition to complete oral antibiotics. Additional medications and instructions are noted in the discharge sequence. Labs (last 24 hrs) Microbiology 01/27/18 Blood Culture - Final, Complete No growth 01/28/18 Mycobacterial Culture - Preliminary, Resulted Patient resulted labs reviewed. Discussion & Recommendations Discharge Planning: <30 minutes discharge planning Discharge Home Medications: Active Scripts Active Augmentin 875-125 Tablet (Amoxicillin/Potassium Clav) 1 Each Tablet 1 Each PO BID 5 Days Reported Probiotic (L.acidoph & Paracasei,B.lactis) 1 Each Capsule 1 Each PO DAILY Vitamin D (Cholecalciferol (Vitamin D3)) 1,000 Unit Tablet 1,000 Unit PO DAILY Colestipol HCl 1 Gm Tablet 1 Gm PO DAILY [place] 7.5-325 Tablet (Hydrocodone/Acetaminophen) 1 Each Tablet 1 Ea PO Q8H PRN Xanax (Alprazolam) 0.5 Mg Tablet 0.5 Mg PO DAILY Verapamil HCl 80 Mg Tablet 80 Mg PO TID Topamax (Topiramate) 25 Mg Tablet 25 Mg PO DAILY Propranolol HCl ER (Propranolol HCl) 60 Mg Cap.sa.24h 60 Mg PO DAILY Meloxicam 15 Mg Tablet 15 Mg PO BID PRN PRN Folic Acid 1 Mg Tablet 1 Mg PO DAILY Cyanocobalamin Injection (Cyanocobalamin) 1,000 Mcg/Ml Inj 1,000 Mcg IM FRIDAYS Atorvastatin Calcium 10 Mg Tablet 10 Mg PO HS Ambien (Zolpidem Tartrate) 5 Mg Tablet 5 Mg PO HS Instructions to patient/family Please see electronic discharge instructions given to patient. Clinical Quality Measures DVT/VTE Risk/Contraindication: Risk Factor Score Per Nursin RFS Level Per Nursing on Admit: 4+=Very High Copy Copies To 1: VIDAL PRECIADO RODNEY K MD Feb 20, 2018 15:49
== END 2018-01-30 14:55 | disposition home or self-care (01) | DRG 167 ==
LOC: ER 14:19 → EDUNIT# 14:19 → ICU 15:57 → 4TH 01-29 12:20
PROVIDERS: ADMIT Internal Medicine; ATTEND Internal Medicine
PROC: 0B9D8ZX Drainage of Right Middle Lung Lobe, Via Natural or Artificial Opening Endoscopic, Diagnostic (ICD-10-PCS; principal; 2018-01-28)
DX: J69.0 Pneumonitis due to inhalation of food and vomit (principal); J15.211 Pneumonia due to Methicillin susceptible Staphylococcus aureus; T17.920A Food in respiratory tract, part unspecified causing asphyxiation, initial encounter; J98.11 Atelectasis; N17.9 Acute kidney failure, unspecified; E86.0 Dehydration; F10.239 Alcohol dependence with withdrawal, unspecified; R06.03 Acute respiratory distress; I10 Essential (primary) hypertension; G47.30 Sleep apnea, unspecified; K21.9 Gastro-esophageal reflux disease without esophagitis; M79.7 Fibromyalgia; M41.9 Scoliosis, unspecified; M06.9 Rheumatoid arthritis, unspecified; Z87.19 Personal history of other diseases of the digestive system; Z86.711 Personal history of pulmonary embolism; R91.1 Solitary pulmonary nodule
CPT/HCPCS: 36415; 71045; 71275; 80048; 80053; 80306; 80320; 81000; 83605; 83735; 84100; 84484; 85007; 85025; 85027; 85610; 87040; 87070; 87077; 87081; 87101; 87106; 87116; 87186; 87205; 88112; 88305; 88312; 93005; 94640; 94664; 94760; 96361; 96365; 96375

== ENCOUNTER → 2018-02-14 | Outpatient (CLI) | payer OTHER ==
[~2018-02-14] MED LIST: ALPR0.5T PO; ALPR0.5T7; AMOX-358 PO; ATOR10TA66 PO; CHOL100045 PO; CNC1KV; CNC1KV IM; COLE1TAB PO; FOLI1TAB24 PO; HYDR-3816; HYDR-756 PO; L.AC1CAP6 PO; MELO15TA39; MELO15TA39 PO; PROP60CA PO; TPR25T PO; VERA80TA2 PO; ZOLP5TAB PO; ZOLP5TAB7
--- NOTE | 2018-02-14 13:56 | Diagnostic Imaging Report ---
INDICATION: Followup aspiration pneumonia. COMPARISON: 01/31/2008. FINDINGS: Two views of the chest are obtained. Heart size is normal. The pulmonary vessels appear unremarkable. There is no pneumothorax, mediastinal widening or pleural fluid. The previously described bilateral alveolar infiltrates have largely resolved with minimal persistent airspace disease at the left lung base. No new abnormality is seen. Osseous structures appear unremarkable. IMPRESSION: There is minimal persistent airspace disease seen at the left lung base. Otherwise, the chest has normalized since the prior exam. No new abnormalities are seen. Dictated by: Dictated on workstation # [id number]
== END ==
LOC: RAD 12:07
PROVIDERS: ATTEND Nurse Practitioner Family
DX: J69.0 Pneumonitis due to inhalation of food and vomit (principal)
CPT/HCPCS: 71046

== ENCOUNTER → 2018-02-27 | Outpatient (CLI) | payer OTHER ==
[~2018-02-27] MED LIST changes: +RT-ALBUTEROL SULF 2.5 MG/3 ML PRE-MIX VIAL INH ONE
== END ==
LOC: RT 15:59
PROVIDERS: ATTEND Nurse Practitioner Family
DX: R06.00 Dyspnea, unspecified (principal); T17.908A Unspecified foreign body in respiratory tract, part unspecified causing other injury, initial encounter
CPT/HCPCS: 94060; 94726; 94729

== ENCOUNTER → 2020-01-13 | Outpatient (CLI) | payer OTHER ==
[~2020-01-13] MED LIST changes: +GADOBUTROL 7.5 MMOL/7.5 ML (GADAVIST) VIAL IV ONE; +HYDR-34; -HYDR-3816; +HYDR-4227 PO; -HYDR-756 PO; -RT-ALBUTEROL SULF 2.5 MG/3 ML PRE-MIX VIAL INH ONE; -VERA80TA2 PO; +VERA80TA4 PO
[2020-01-13 14:15] LABS: BUN/CREATININE RATIO 11; CREATININE SERUM 0.79 MG/DL (0.60-1.30); GFR ESTIMATED > 60
--- NOTE | 2020-01-13 15:02 | Diagnostic Imaging Report ---
PROCEDURE: MR imaging of the brain with and without contrast. TECHNIQUE: Multiplanar, multisequence MR imaging of the brain was performed with and without contrast. INDICATION: Pain and numbness in both feet and hands. COMPARISON: 05/24/2015. FINDINGS: No acute ischemia, mass, or hemorrhage. No abnormal enhancement. Small focus of T2/FLAIR hyperintense signal is seen in the subcortical white matter of the left frontal lobe. The ventricles, cortical sulci, and basilar cisterns are symmetric and unremarkable. The sellar and suprasellar regions have a normal appearance. The brainstem and posterior fossa are unremarkable. The paranasal sinuses and mastoid air cells demonstrate normal signal characteristics. The globes and orbits are symmetric and unremarkable. The scalp and calvarium have a normal appearance. IMPRESSION: 1. No acute ischemia, mass, or hemorrhage. No abnormal enhancement. 2. Small focus of T2 hyperintense signal in the subcortical white matter of the left frontal lobe. Dictated by: Dictated on workstation # [id number]
== END ==
LOC: RAD 13:36
PROVIDERS: ATTEND Nurse Practitioner Family
DX: G62.9 Polyneuropathy, unspecified (principal)
CPT/HCPCS: 36415; 70553; 82565; 84520